=== PATIENT | male | born 1970 | race Caucasian/White ===

== ENCOUNTER 2024-08-11 14:11 | Emergency (ER) | payer OTHER, SELFPAY ==
--- NOTE | ~2024-08-11 | CT_ITS ---
CLINICAL HISTORY: head injury CT cervical spine without contrast Comparison: None Findings: Normal vertebral body alignment. Degenerative changes of the C5-C6. No acute fractures or dislocations. No acute findings on limited view of the intracranial contents. Soft tissues of the neck are normal. Lung apices are clear. IMPRESSION: No acute findings. This document has been electronically signed by: Lorenza Roach MD on 08/11/2024 15:49:17
--- NOTE | ~2024-08-11 | CT_ITS ---
CLINICAL HISTORY: facial injury nosal fracture CT maxillofacial without contrast Comparison: None Findings: Small acute fracture of the nasal bone. Temporomandibular joints are intact. Mucosal thickening of the bilateral maxillary sinus. Unremarkable orbital contents. Visualized intracranial contents are within normal limits. No foreign bodies. IMPRESSION: Small acute fracture of the nasal bone. This document has been electronically signed by: Lorenza Roach MD on 08/11/2024 16:46:15
--- NOTE | ~2024-08-11 | CT_ITS ---
CLINICAL HISTORY: Head injury CT head without contrast Comparison: None Findings: No intra-axial mass, midline shift, hydrocephalus, or acute hemorrhage. No significant atrophy-like change or white matter disease. The visualized paranasal sinuses and mastoid air cells are normal. The orbits are unremarkable. No skull fracture. IMPRESSION: 1. No acute intracranial findings. This document has been electronically signed by: Lorenza Roach MD on 08/11/2024 16:48:34
[2024-08-11 14:32] VITALS: BP 140/91; PULSE 70; RESP 16; TEMP 37.1; O2SAT 98; BMI 31.0
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
[2024-08-11] MEDS: oxyCODONE HCl Immed Release 5 MG TABLET PO (17:31)
[2024-08-11 17:34] VITALS: BP 146/85; PULSE 61; RESP 16; TEMP 36.4; O2SAT 100
== END 2024-08-11 17:35 | disposition home or self-care (01) ==
PROVIDERS: Emergency Provider Emergency Medicine
DX: S02.2XXA Fracture of nasal bones, initial encounter for closed fracture (principal); J34.2 Deviated nasal septum; M54.2 Cervicalgia; V86.52XA Driver of snowmobile injured in nontraffic accident, initial encounter; R51.9 Headache, unspecified; Y93.29 Activity, other involving ice and snow; Y92.9 Unspecified place or not applicable; Y99.8 Other external cause status
CPT/HCPCS: 70450; 70486; 72125; 99283; 99284

== ENCOUNTER → 2024-08-11 14:35 | Outpatient (BNV) | payer OTHER, SELFPAY | PROVIDERS: Visit Provider Nuclear Medicine | DX: S09.90XA Unspecified injury of head, initial encounter (principal); S02.2XXA Fracture of nasal bones, initial encounter for closed fracture | CPT/HCPCS: 70450; 70486; 72125 ==